=== PATIENT | male | born 1975 | race Caucasian/White ===

== ENCOUNTER 2021-12-20 16:43 | Inpatient (IN) | payer BC, SELFPAY ==
[2021-12-20] VITALS (9 sets, daily range): BP systolic 115–169; BP diastolic 92–111; PULSE 74–103; RESP 11–21; TEMP 36.3–36.8; O2SAT 96–99; BMI 31.1
--- NOTE | ~2021-12-20 | XR_ITS ---
EXAMINATION: XR chest 2V Exam Date/Time: 12/20/2021 19:10 CDT HISTORY: shoulder pain,CP Comparison: None available. RESULT: Lines, tubes, and devices: None. Lungs and pleura: Lordotic and under inflated views. Cardiomediastinal silhouette: Stable. Other: No acute osseous or upper abdominal finding. IMPRESSION: No acute cardiopulmonary process. Reviewed, dictated and finalized at location K.
--- NOTE | 2021-12-20 20:00 | ECG_ITS ---
Measurements Intervals [place] Rate: 94 P: 38 [place]: 143 QRS: -18 QRSD: 105 T: 32 QT: 359 QTc: 450 Interpretive Statements SINUS RHYTHM POSSIBLE LEFT ATRIAL ENLARGEMENT DELAYED PRECORDIAL R/S TRANSITION LEFT VENTRICULAR HYPERTROPHY AND ST-T CHANGE MINIMAL Q WAVES- HIGH LATERAL LEADS INFERIOR ST ELEVATION MYOCARDIAL INFARCT- ACUTE ABNORMAL ECG Electronically Signed On 12-21-2021 8:19:05 CDT by Perez Nj D.O.
--- NOTE | 2021-12-20 20:01 | ED.EXTPRO ---
HPI - Extremity Problem General Chief complaint: Chest Pain <Stewart Banegas APRN - Last Filed: 12/20/21 21:09> Stated complaint: L SHOULDER/ARM PAIN RADIATING TO CHEST <Stewart Banegas APRN - Last Filed: 12/20/21 21:09> Time Seen by Provider: 12/20/21 19:00 <Stewart Banegas APRN - Last Filed: 12/20/21 21:09> History of Present Illness HPI Narrative: 46-year-old male presents the emergency room for evaluation of left shoulder pain. Patient states he occasionally has posterior shoulder pain that radiates from the left elbow, and will also radiate across the chest. Pain has been present intermittently for 3-4 days. States the pain is worse with certain movements. Denies any known injury or trauma. Patient states he was seen in a chiropractor earlier this week for back and shoulder pain, states his symptoms have improved. Denies any shortness of breath or difficulty breathing. Denies any syncopal episodes. Denies dizziness or lightheadedness. No known cardiac history. <Stewart Banegas APRN - Last Filed: 12/20/21 21:09> Related Data Home medications: Home Medications Medication Instructions Recorded Confirmed No Home Medications 12/20/21 12/20/21 <Stewart Banegas APRN - Last Filed: 12/20/21 21:09> Allergies/Adverse reactions: Allergies Allergy/AdvReac Type Severity Reaction Status Date / Time No Known Allergies Allergy Verified 12/20/21 16:44 <Stewart Banegas APRN - Last Filed: 12/20/21 21:09> Review of Systems Review of Systems: CONSTITUTIONAL: Denies fever, chills, or sweats. EYES: Denies visual changes, redness, or discharge. ENT: Denies rhinorrhea, congestion, sore throat, or otalgia. CARDIOVASCULAR: Denies chest pain, palpitations, or edema. RESPIRATORY: Denies cough or dyspnea. GASTROINTESTINAL: Denies abdominal pain, nausea, vomiting, or diarrhea. GENITOURINARY: Denies dysuria or hematuria. SKIN: Denies rash or itching. MUSCULOSKELETAL: Reports left elbow pain, left shoulder pain NEUROLOGIC: Denies headache, numbness, dizziness, or weakness. PSYCHIATRIC: Denies anxiety or depression. <Stewart Banegas, COMPUTER GRAPHIC ARTIST - Last Filed: 12/20/21 21:09> Exam Narrative: GENERAL: Well-appearing, well-nourished, no physical limitations, and in no acute distress. HEAD: Normocephalic, atraumatic. EYES: Conjunctivae normal, PERRLA and EOMI. CHEST: Clear to auscultation. No respiratory distress. No wheezes rales or rhonchi. No tenderness. HEART: Regular rate and rhythm. No murmur heard. Normal peripheral pulses. ABDOMEN: Soft, nontender, nondistended, normal active bowel sounds. BACK: No CVA tenderness; No cervical/thoracic/lumbar tenderness, step-offs, bony abnormality; FROM. EXTREMITIES: Normal range of motion. Left shoulder: Full range of motion. No bony abnormality or tenderness. No soft tissue swelling. Neurovascular is intact distally SKIN: Warm, dry, no rash. No noted wounds NEURO: No focal deficits. Alert and oriented x3. MAEW. CN's II-XI intact bilaterally, normal gait PSYCH: Cooperative. Normal mood and affect. <Stewart Banegas, COMPUTER GRAPHIC ARTIST - Last Filed: 12/20/21 21:09> Course GAS METER INSTALLER HELPER/PA Physician Supervision For this patient encounter, I reviewed the GAS METER INSTALLER HELPER or PA documentation, treatment plan, and medical decision making; and I had [id number] time with this patient. GENERAL: Well-appearing, well-nourished, and in no acute distress. HEAD: Normocephalic, atraumatic. EYES: PERRL and EOMI. CHEST: Clear to auscultation. No respiratory distress. HEART: Regular rate and rhythm. Normal peripheral pulses. ABDOMEN: Soft, nontender, nondistended. EXTREMITIES: Normal range of motion. No edema. SKIN: Warm, dry, no rash. NEURO: Alert and oriented x3. PSYCH: Normal mood and affect. Abdomen pain left arm moving across left chest for the last 2 to 3 days. Proximately 10 times a day. Can last up to 30 minutes. EKG concerning for inferior STEMI with reciprocal depression in V1 V2. Contact
[2021-12-20 20:11] LABS: Basophils Percent Auto 0.4 % (0.2-1.2); Eosinophils Absolute Auto 0.1 K/mm3 (0-0.3); Eosinophils Percent Auto 0.8 % (0-4.4); Hematocrit 50.7 % (42.0-52.0); Immature Granulocyte Absolute 0.07 K/mm3 (0.00-0.031); Immature Granulocyte Percent A 0.8 % (0-0.5); Lymphocytes Absolute Auto 2.32 K/mm3 (0.9-3.2); Lymphocytes Percent Auto 25.3 % (18.3-44.2); Mean Corpuscular HGB Conc 35.5 g/dl (32-36); Mean Corpuscular Hemoglobin 30.8 pg (26-34); Mean Corpuscular Volume 86.7 fl (80-100); Mean Platelet Volume 9.6 fl (7.4-10.4); Monocytes Absolute Auto 0.5 K/mm3 (0.1-0.6); Monocytes Percent Auto 5.7 % (2.6-8.5); Neutrophils Absolute Auto 6.2 K/mm3 (1.3-6.7); Platelet Count Result 307 k/mm3 (150-375); Red Blood Count 5.85 M/mm3 (4.6-6.20); Red Cell Distribution Width 13.7 % (11.5-14.5); White Blood Count 9.2 K/mm3 (4.5-10.0)
[2021-12-20 20:21] LABS: Alanine Aminotransferase 24 U/L (6-50); Albumin Level 5.2 g/dL (3.5-5.1); Alkaline Phosphatase 72 U/L (38-126); Anion Gap 14 mmol/L (8-16); Aspartate Amino Transferase 19 U/L (17-59); Bilirubin,Total 0.5 mg/dL (0.2-1.3); Blood Urea Nitrogen 12 mg/dL (9-20); Calcium 10.3 mg/dL (8.4-10.2); Carbon Dioxide 27 mmol/L (22-30); Chloride 98 mmol/L (98-107); Estimated CRCL calculation 193 ml/min; Estimated Glomerular Filt Rate > 60; Glucose 254 mg/dL (65-110); Potassium 3.3 mmol/L (3.4-5.0); Sodium 139 mmol/L (137-145)
[2021-12-20 20:34] LABS: Troponin I 0.204 ng/mL (0.000-0.034)
[2021-12-20 21:00] LABS: Prothrombin Time 12.5 Seconds (11.1-14.7)
[2021-12-20 21:02] LABS: Lipase 75 U/L (23-300)
--- NOTE | 2021-12-20 22:50 | WPDMODSED ---
Moderate Sedation Note-Pt Data Patient Data Diagnosis: possible STEMI Present Complaint: left arm pain Procedure to be performed/Plan: coronary angiogram with possible stenting Allergies Allergy/AdvReac Type Severity Reaction Status Date / Time No Known Allergies Allergy Verified 12/20/21 16:44 Home Medications Medication Instructions Recorded Confirmed Type No Home Medications 12/20/21 12/20/21 History Sedation/Anesthesia: No previous sedation/anesthesia problems (including family history). Mod Sed Physical Exam Physical Exam Pre Procedural Exam: Normal: Appearance, Eyes, Ears, Nose, Neck, Throat, Airway, Lungs, Heart Size, Heart Rate, Heart Rhythm, Neuro Exam, Abdomen, Liver, Kidneys, Spleen, Breasts, Genitalia, Extremities and Skin Hours since solid foods: 8 Hours since liquid intake: 8 Mallampati Classification: class 1 Internal Medicine - PN: Obj Da Vital Signs Vital Signs: Vital Signs - 24 hr 12/20/21 16:46 12/20/21 19:47 12/20/21 20:12 Temperature 36.3 C L Pulse Rate 92 100 96 Respiratory Rate 20 20 14 Blood Pressure 153/97 H 115/96 H 155/111 H Pulse Oximetry 99 97 98 Oxygen Delivery Room Air Room Air 12/20/21 20:39 12/20/21 21:12 Temperature Pulse Rate 103 H 82 Respiratory Rate 15 20 Blood Pressure 169/108 H 149/97 H Pulse Oximetry 96 98 Oxygen Delivery Meds/Results Radiology Results: ITS Impressions Chest X-Ray 12/20/21 19:25 IMPRESSION: No acute cardiopulmonary process. Labs CBC & Chem 7: 12/20/21 20:06 12/20/21 20:06 Labs: Laboratory Results - last 24 hr 12/20/21 12/20/21 12/20/21 20:06 20:06 20:44 WBC 9.2 RBC 5.85 Hgb 18.0 Hct 50.7 MCV 86.7 MCH 30.8 MCHC 35.5 RDW 13.7 Plt Count 307 MPV 9.6 Immature Gran % (Auto) 0.8 H Neut % (Auto) 67.0 Lymph % (Auto) 25.3 Nobles % (Auto) 5.7 Eos % (Auto) 0.8 Baso % (Auto) 0.4 Lymph # (Auto) 2.32 Nobles # (Auto) 0.5 Eos # (Auto) 0.1 Baso # (Auto) 0.0 Abs Immat Gran (auto) 0.07 H Absolute Neuts (auto) 6.2 Absolute Nucleated RBC 0.0 Nucleated RBC % 0.0 PT 12.5 INR 1.0 APTT 35.0 Sodium 139 Potassium 3.3 L Chloride 98 Carbon Dioxide 27 Anion Gap 14 BUN 12 Creatinine 0.50 L Estim Creat Clear Calc 193 Estimated GFR > 60 Glucose 254 H Calcium 10.3 H Total Bilirubin 0.5 AST 19 ALT 24 Alkaline Phosphatase 72 Troponin I 0.204 H* Total Protein 9.0 H Albumin 5.2 H Lipase 12/20/21 20:44 WBC RBC Hgb Hct MCV MCH MCHC RDW Plt Count MPV Immature Gran % (Auto) Neut % (Auto) Lymph % (Auto) Nobles % (Auto) Eos % (Auto) Baso % (Auto) Lymph # (Auto) Nobles # (Auto) Eos # (Auto) Baso # (Auto) Abs Immat Gran (auto) Absolute Neuts (auto) Absolute Nucleated RBC Nucleated RBC % PT INR APTT Sodium Potassium Chloride Carbon Dioxide Anion Gap BUN Creatinine Estim Creat Clear Calc Estimated GFR Glucose Calcium Total Bilirubin AST ALT Alkaline Phosphatase Troponin I Total Protein Albumin Lipase 75 ASA Classification/Sedation ASA Classification/Sedation ASA Class: I Emergent: No Risks: Risks, benefits and alternatives explained and patient/family accepted plan for sedation. Patient re-evaluated immediately prior to sedation.
--- NOTE | 2021-12-20 22:52 | PM.IMHP ---
H&P: HPI History of Present Illness Date/Time: date of umqobqf32/30/22 22:52 Chief Complaint: left arm pain Narrative: this is 46-year-old patient with past medical history of tobacco use who presents to the hospital with intermittent left shoulder and left arm pain for the last 3-4 days without aggravating or relieving factors. Denies shortness of breath, palpitations, dizziness, syncope, orthopnea or paroxysmal nocturnal dyspnea. He does not know his family history. interestingly reviewing his EKG shows subtle ST elevation in inferior leads with subtle ST depression in leads 1 and aVL. His 1st troponin was 0.2, his glucose is 250, potassium 3.3 and creatinine 0.5. Hemoglobin 18 Review of Systems Constitutional: Constitutional: Denies chills, Denies fever(s) and Denies poor appetite Eyes: Eyes: Denies eye discharge, Denies loss of vision, Denies eye pain and Denies photophobia ENT: Denies dizziness, Denies epistaxis, Denies nasal congestion and Denies sore throat Cardiovascular: Cardiovascular: Denies chest pain, Denies syncope, Denies pedal edema, Denies leg edema, Denies palpitations, Denies dyspnea, Denies dyspnea on exertion and Denies orthopnea Comments: Left arm pain Respiratory: Respiratory: Denies cough, Denies dyspnea, Denies dyspnea on exertion and Denies wheezing Gastrointestinal: Gastrointestinal: Denies abdominal pain, Denies diarrhea, Denies nausea and Denies vomiting Genitourinary: Genitourinary: Denies hematuria, Denies genital lesions and Denies dysuria Musculoskeletal: Musculoskeletal: Denies arthralgias, Denies joint swelling and Denies numbness Comments: left arm pain Integumentary/Breasts: Skin/Breast: Denies pruritus and Denies rash Neurologic: Denies dizziness, Denies syncope, Denies loss of vision and Denies numbness Psychiatric: Psychiatric: Denies anxiety and Denies depression Endocrine: Endocrine: Denies cold intolerance, Denies heat intolerance and Denies palpitations Hematologic/Lymphatic: Hematologic/Lymphatic: Denies easy bleeding and Denies easy bruising Allergic/Immunologic: Allergic/Immunologic: Denies urticaria and Denies wheezing PMFSH Past Medical History Medical History (Updated 12/20/21 @ 23:00 by Isaias Nunez MD) No known health problems Tobacco abuse Surgical History Surgical History (Updated 12/20/21 @ 22:58 by Isaias Nunez MD) No significant past surgical history Social History Social History (Updated 12/20/21 @ 22:58 by Isaias Nunez MD) Smoking status: Current every day smoker Tobacco type: cigarettes Alcohol intake: never Substance use: never Comments the patient is and has 3 children Meds Home Medications and Allergies Home Medications Medication Instructions Recorded Confirmed Type No Home Medications 12/20/21 12/20/21 History Allergies Allergy/AdvReac Type Severity Reaction Status Date / Time No Known Allergies Allergy Verified 12/20/21 16:44 Vital Signs Vital Signs - 24 hr 12/20/21 16:46 12/20/21 19:47 12/20/21 20:12 Temperature 36.3 C L Pulse Rate 92 100 96 Respiratory Rate 20 20 14 Blood Pressure 153/97 H 115/96 H 155/111 H Pulse Oximetry 99 97 98 Oxygen Delivery Room Air Room Air 12/20/21 20:39 12/20/21 21:12 Temperature Pulse Rate 103 H 82 Respiratory Rate 15 20 Blood Pressure 169/108 H 149/97 H Pulse Oximetry 96 98 Oxygen Delivery Exam Const: General: cooperative, comfortable, no acute distress, alert and awake Nutritional Appearance: well nourished Orientation/consciousness: patient oriented x3 HENMT: Head: normal to inspection, normocephalic and atraumatic Ears: hearing grossly normal bilaterally General nose exam: Normal external nose present, Normal nares present and no nasal discharge noted Face and sinus: normal facial exam and no erythema Mouth: No drooling and No restricted motion Throat: uvula midline Eyes: General: appearance audie
--- NOTE | 2021-12-20 23:02 | WPDCARDPROC ---
Cardiac Cath Procedure Note Date of procedure:: 12/20/21 Performing physician:: Isaias Nunez MD Indication:: inferior ST elevation, left arm pain Brief clinical history:: this is 46-year-old patient with past medical history of tobacco use who presents to the hospital with intermittent left shoulder and left arm pain for the last 3-4 days without aggravating or relieving factors.? Denies shortness of breath, palpitations, dizziness, syncope, orthopnea or paroxysmal nocturnal dyspnea.? He does not know his family history. ?interestingly reviewing his EKG shows subtle ST elevation in inferior leads with subtle ST depression in leads 1 and aVL.? His 1st troponin was 0.2, his glucose is 250, potassium 3.3 and creatinine 0.5. ? Hemoglobin 18 Procedure Procedure performed:: 1-Moderate sedation that started at 9:25 p.m. and ended at 10:50 p.m. with total duration 85 minutes using 2mg of Versed and 75mcg fentanyl. The registered nurse was rick santillan. 2-Selective left and right coronary angiogram. 3-Left heart catheterization with measurement of LVEDP and measurement of gradient across aortic valve. 4-Right common femoral arterial angiogram. 5-Deployment of 6 Mongolian Angio-Seal. 6- IFR of the mid LAD. 7- IFR of mid ramus intermedius. 8- IFR of distal left circumflex artery. 9- intravascular ultrasound of the right coronary artery. 10- deployment of a drug-eluting stent marisel 3.5 x 30 for covering mid RCA with deployment under nominal pressure for 35 seconds and then post dilatation of the proximal and mid portion of the stent using 4 x 20 noncompliant balloon. Sedation/Medication given:: Moderate sedation. Access site:: Right common femoral artery. Estimated blood loss:: 10cc Procedure note:: After informed consent patient was brought in to labor relations supervisor with the was draped and prepped in usual manner. Moderate sedation was given and the right groin was infiltrated using 1% lidocaine. Six Mongolian sheath was obtained using micropuncture needle and the modified Seldinger technique. Selective left coronary angiogram was done using JL4 catheter with the tip of the catheter placed in the left main coronary artery. Selective right coronary angiogram was done using JR4 catheter with the tip of the catheter placed to the right coronary artery. subsequently we took CLS guide catheter and advanced to aortic root. Pressure wired was zeroed outside the body and then advanced to the aortic root with normalization pressures done. Pressure wire was advanced to distal LAD a measurement of IFR of the LAD was done. Pullback across the proximal and mid LAD was done. Then the pressure was taken back again into the guide and normalization pressures done. Pressure wire was advanced to distal ramus intermedius and measurement of IFR done. Pull across the lesion was done. the wire was pulled to the guide with normalization pressures done and then the wire was advanced distal left circumflex artery were measurement of IFR done and then pullback across the lesion done. Since the IFR was not significant in the left coronary system we proceeded ahead and decided to intervene on the right coronary artery. At this time 6 Mongolian guide catheter the JR4 was taken and engaged the right coronary artery. Coronary luge wire advanced to distal RCA. Subsequently balloon angioplasty done in the mid RCA using 3 x 15 balloon with initial inflation under normal pressure for 20 seconds and then we inflated the balloon to 10 atmospheres for 25 seconds with 3 inflations done. Intravascular ultrasound of the right coronary artery done. After that deployment of drug-eluting stent marisel 3.5 x 34 comparing mid RCA under number pressure for 35 seconds. post dilatation of the proximal and midportion of the stent done using 4 x 20 noncompliant balloon under normal pressure for 25 seconds each. After that 5 Mongolian pigtail catheter was advanced across the aortic valve into the left ventricl
--- NOTE | 2021-12-20 23:10 | ADMGEN ---
This patient, David Magdaleno, was admitted to Intensive Care Unit-1. Patient/family oriented to hospital policies and general routines including ID bracelet, bed and alarms, visiting hours, pain management, procedures, bathroom and other care routines, personal items, smoking policy, room service/diet, and visiting hours. Information on how to activate the Rapid Response Team has been discussed. Patient/Family are encouraged to report perceived risks to care and to ask questions if they do not understand what they are told or what they should do.
--- NOTE | 2021-12-20 23:15 | ECG_ITS ---
Measurements Intervals [place] Rate: 73 P: 49 OR: 124 QRS: -9 QRSD: 108 T: -25 QT: 409 QTc: 453 Interpretive Statements SINUS RHYTHM INFERIOR INFARCT, AGE INDETERMINATE ABNORMAL ECG Electronically Signed On 12-21-2021 17:21:06 CDT by Perez Nj D.O.
[2021-12-20] MEDS: SODIUM CHLORIDE 0.9% IV 1,000 ML 125 ML IV CONT (23:54)
[2021-12-21] VITALS (41 sets, daily range): BP systolic 101–154; BP diastolic 67–96; PULSE 66–97; RESP 9–22; TEMP 35.9–36.7; O2SAT 95–100
[2021-12-21 04:11] LABS: Basophils Percent Auto 0.3 % (0.2-1.2); Eosinophils Absolute Auto 0.1 K/mm3 (0-0.3); Eosinophils Percent Auto 0.4 % (0-4.4); Hematocrit 45.7 % (42.0-52.0); Immature Granulocyte Absolute 0.07 K/mm3 (0.00-0.031); Immature Granulocyte Percent A 0.6 % (0-0.5); Lymphocytes Absolute Auto 2.28 K/mm3 (0.9-3.2); Lymphocytes Percent Auto 20.3 % (18.3-44.2); Mean Corpuscular Hemoglobin 30.7 pg (26-34); Mean Corpuscular Volume 87.7 fl (80-100); Mean Platelet Volume 9.3 fl (7.4-10.4); Monocytes Absolute Auto 0.7 K/mm3 (0.1-0.6); Monocytes Percent Auto 6.2 % (2.6-8.5); Neutrophils Absolute Auto 8.1 K/mm3 (1.3-6.7); Neutrophils Percent Auto 72.2 % (45.5-73.1); Platelet Count Result 230 k/mm3 (150-375); Red Blood Count 5.21 M/mm3 (4.6-6.20); Red Cell Distribution Width 13.5 % (11.5-14.5); White Blood Count 11.2 K/mm3 (4.5-10.0)
[2021-12-21 04:25] LABS: Hemoglobin A1C 9.7 % (<5.7)
[2021-12-21 04:30] LABS: Anion Gap 9 mmol/L (8-16); Blood Urea Nitrogen 11 mg/dL (9-20); Calcium 8.9 mg/dL (8.4-10.2); Carbon Dioxide 30 mmol/L (22-30); Chloride 100 mmol/L (98-107); Cholesterol 297 mg/dL (0-200); Estimated CRCL calculation 194 ml/min; Estimated Glomerular Filt Rate > 60; Glucose 217 mg/dL (65-110); HDL Direct 28 mg/dL; Sodium 139 mmol/L (137-145)
[2021-12-21 04:33] LABS: LDL Cholesterol Direct 66 mg/dL
[2021-12-21 05:19] LABS: Triglycerides 1159 mg/dL (<150)
--- NOTE | 2021-12-21 07:00 | ECG_ITS ---
Measurements Intervals [place] Rate: 75 P: 42 [place]: 124 QRS: -17 QRSD: 105 T: -9 QT: 395 QTc: 443 Interpretive Statements SINUS RHYTHM VOLTAGE CRITERIA FOR LVH INFERIOR INFARCT, AGE INDETERMINATE ABNORMAL ECG Electronically Signed On 12-21-2021 8:19:53 CDT by Perez Nj D.O.
[2021-12-21 08:11] LABS: Glucose Point of Care 300 mg/dl (65-105)
[2021-12-21] MEDS: TICAGRELOR 90 MG TABLET PO ×2 (08:30→20:03)
--- NOTE | 2021-12-21 08:30 | PM.IMCN ---
Assessment and Plan Assessment and plan (1) ST elevation (STEMI) myocardial infarction: Code(s): I21.3 - ST elevation (STEMI) myocardial infarction of unspecified site Status: Acute (2) Hypokalemia: Code(s): E87.6 - Hypokalemia Status: Acute (3) CAD (coronary artery disease): Code(s): I25.10 - Atherosclerotic heart disease of [place] coronary artery without angina pectoris Status: Acute (4) Diabetes mellitus: Code(s): E11.9 - Type 2 diabetes mellitus without complications Status: Acute (5) Hypertriglyceridemia: Code(s): E78.1 - Pure hyperglyceridemia Status: Acute (6) Tobacco abuse: Code(s): Z72.0 - Tobacco use Status: Acute Plan Patient presents with left shoulder and chest pain found to have ST-elevation FL. Patient underwent balloon angioplasty and drug-eluting stent placement successfully. He has tolerated the procedure well. It should be noted that he had diffuse irregular disease in the LAD in the was discussion about possible CABG but the IFR was borderline at worst. Repeat EKG showing resolution of the ST elevation. Plan for aggressive medical management. He has been started on aspirin and Brilinta. Coreg and lisinopril was added today. patient's total cholesterol was elevated and Lipitor has been started. His triglycerides are elevated probably related to his uncontrolled diabetes. Lipase is normal and no abdominal pain with benign exam. TG level should improve with improvement was glucose. Metformin has been added which agree with. He is also was started on insulin drip for diabetes and triglyceride control. staff development educator and dietitian consult. Suspect patient was dehydrated on presentation with elevated calcium, protein and albumin. Calcium has normalized with hydration. Patient was educated extensively about the benefits of smoking cessation. He was also educated about the need for good dental hygiene and discuss the association with coronary disease. Also spoke at length about the benefits of leading a healthy lifestyle. All questions were answered. Thank you so much for allowing me to be part of this patient's care. Will continue to follow along with you. Code status: Full DVT prophylaxis: Lovenox Diet: Low fat. Add diabetic HPI Data of Consult Consult date: 12/21/21 Requesting Physician: Dr Nunez Primary Care Provider: PHYSICIAN NOT ON STAFF Consult Narrative Narrative: David Magdaleno is a 46 year old healthy male here for left shoulder pain and found to have STEMI.Patient presents to the emergency room with complaints left shoulder pain that radiated to left arm associated chest pain. Symptoms have been intermittent for the past 3-4 days prior to admissions. Troponin was elevated at 0.2. EKG showed ST-elevation the inferior leads with reciprocal depression in V1 and V2. CXR was clear STEMI was called and patient went left heart catheterization which showed large left coronary artery in the divides into a large LAD and a large circumflex and ramus. The LAD a proximal and midportion diffuse 50-60% lesion. The right coronary artery was large and dominant with a mid portion 90% ruptured plaque with TOYA flow 3. Patient underwent successful balloon angioplasty and stenting of the mid RCA with drug-eluting stent. routine lab work showed low potassium, elevated glucose to 254, calcium 10.3, total protein of 9 and albumin of 5.2. Lipase was normal. Triglyceride level was 1159 with cholesterol 297 and LDL 66 and HDL 28. Patient has no history of diabetes. He smokes half a pack a day for the past 10-15 years. He has noted polyuria over the past month or so. He has polydypsia symptoms but states this is more chronic for him. No numbness, tingling or weakness in the extremities. No blurry vision or vision changes. He has not seen a physician for past 10 years. Review of Systems Review of Systems: All systems r
[2021-12-21] MEDS: metFORMIN HCL 500 MG TABLET PO ×2 (08:31→18:08)
[2021-12-21] MEDS: ASPIRIN 81 MG ENTERIC TABLET PO (08:31)
[2021-12-21] MEDS: POTASSIUM CHLORIDE 20 MEQ PACKET (FOR LIQUID) 40 MEQ PO ×2 (08:31→21:23)
[2021-12-21] MEDS: KCL 20 MEQ/D5/0.45% SOD CHL 1,000 ML 150 ML IV CONT ×2 (08:32→19:22)
[2021-12-21] MEDS: POTASSIUM CHLORIDE INJ 40 MEQ in SODIUM CHLORIDE 0.9% IV 500 ML 130 MEQ IVPB ×2 (08:32→21:23)
--- NOTE | 2021-12-21 09:23 | WPDCNINT ---
Assessment and Plan Assessment and plan (1) ST elevation (STEMI) myocardial infarction: Code(s): I21.3 - ST elevation (STEMI) myocardial infarction of unspecified site Status: Acute Assessment and Plan: Status post cardiac catheterization and PCI. Stent placement to RCA Currently chest pain-free and EKG done this morning shows improve Continue ICU telemetry monitoring Check echocardiogram Patient is on aspirin and Brilinta Start statin beta-sarah and SAM-inhibitor (2) CAD (coronary artery disease): Code(s): I25.10 - Atherosclerotic heart disease of [place] coronary artery without angina pectoris Status: Acute Assessment and Plan: See above (3) Hypertriglyceridemia: Code(s): E78.1 - Pure hyperglyceridemia Status: Acute Assessment and Plan: Patient's triglyceride level was 1159 be secondary to uncontrolled diabetes Patient will be started on IV insulin infusion once he receives his potassium replacement. Patient was also started on IV fluids with dextrose Patient will also be started on statin I will hold starting fenofibrate until triglyceride levels are improved since patient is also being started on statin today (4) Tobacco abuse: Code(s): Z72.0 - Tobacco use Status: Acute Assessment and Plan: Patient was counseled and encouraged to quit smoking He was started on nicotine patch by Cardiology (5) Hypokalemia: Code(s): E87.6 - Hypokalemia Status: Acute Assessment and Plan: Potassium replacement ordered Serial BMPs ordered (6) Diabetes mellitus: Code(s): E11.9 - Type 2 diabetes mellitus without complications Status: Acute Assessment and Plan: Patient on insulin infusion for hypertriglyceridemia this Consult conservation educator Start metformin Additional Plan DVT prophylaxis -Lovenox Nutrition -low-fat Code Status - Full Code Human Resources Temp Consult Note Consult date: 12/21/21 Reason for consult: STEMI, uncontrolled diabetes, hypertriglyceridemia HPI: David Magdaleno is a 46 year old male with no known significant past medical history presented yesterday with chief complaint of pain which started in his left shoulder and transferred to his chest. Patient states the pain started around Wednesday and had been intermittent since then. Pain was 2/10, dull in quality and started initially in the shoulder that went to his left arm and later into his chest. Pain was intermittent with no aggravating or relieving factor. Pain has now presents resolved completely. He denied any nausea vomiting shortness of breath dizziness lightheadedness palpitations associated with it. Review of system was positive for polyuria and polydipsia.All other systems were reviewed and were negative In the ED patient was found to be having elevated and ST segment elevation in inferior leads. Patient was diagnosed with ST segment elevation CA and was taken to cardiac catheterization lab where he underwent PCI and stenting of his right RCA. Post procedure patient was admitted to ICU for further evaluation management. At this time patient denies any complaints and states that he feels much better and does not have any chest pain or shortness of breath at this time. Review of Systems Review of Systems: All systems reviewed & are unremarkable except as noted in HPI and below (HPI) [facility] Past Medical History Medical History No known health problems Tobacco abuse Surgical History Surgical History No significant past surgical history Family History Family History Other Unknown family medical history Social History Social History (Updated 12/21/21 @ 08:49 by Tobin Ramirez MD) Social History: He lives at home with his and 3 children. He smokes half a pack a day for past 10-15
[2021-12-21 11:05] LABS: Glucose Point of Care 211 mg/dl (65-105)
[2021-12-21] MEDS: INSULIN HUMAN REGULAR (*BKC) 100 UNITS in SODIUM CHLORIDE 0.9% IV 99 ML IV CONT (11:05)
[2021-12-21] MEDS: lisinopriL 5 MG TABLET PO (11:06)
[2021-12-21] MEDS: ATORVASTATIN 40 MG TABLET PO (11:06)
[2021-12-21] MEDS: carvediloL 3.125 MG TABLET PO ×2 (11:06→20:03)
[2021-12-21] MEDS: ENOXAPARIN 40 MG/0.4 ML SYRINGE SUB-Q (11:07)
[2021-12-21 12:10] LABS: Glucose Point of Care 203 mg/dl (65-105)
[2021-12-21 12:16] LABS: Anion Gap 9 mmol/L (8-16); Blood Urea Nitrogen 11 mg/dL (9-20); Calcium 8.8 mg/dL (8.4-10.2); Carbon Dioxide 27 mmol/L (22-30); Chloride 101 mmol/L (98-107); Estimated CRCL calculation 194 ml/min; Estimated Glomerular Filt Rate > 60; Glucose 193 mg/dL (65-110); Potassium 3.7 mmol/L (3.4-5.0); Sodium 137 mmol/L (137-145)
[2021-12-21 13:21] LABS: Glucose Point of Care 258 mg/dl (65-105)
[2021-12-21 14:32] LABS: Glucose Point of Care 228 mg/dl (65-105)
[2021-12-21 15:17] LABS: Glucose Point of Care 180 mg/dl (65-105)
--- NOTE | 2021-12-21 15:47 | PM.PNCARD ---
Progress Note: A&P Assessment and Plan (1) ST elevation (STEMI) myocardial infarction: Code(s): I21.3 - ST elevation (STEMI) myocardial infarction of unspecified site Status: Acute Assessment and Plan: Acute inferior myocardial infarction treated with a drug-eluting stent by Dr. Nunez 12/20/2021 late p.m. Echo tomorrow to evaluate LV function Increase activity Discharge tomorrow night or more likely Wednesday, to get the patient's diabetes under better control before discharge. Early office follow-up Possible return to work January 05 or January 11, depending on the patient's course. Pt does desk work. (2) CAD (coronary artery disease): Code(s): I25.10 - Atherosclerotic heart disease of [place] coronary artery without angina pectoris Status: Acute Assessment and Plan: Multivessel CAD, IFR performed during cardiac catheterization, good flow through the left-sided vessels. No need for CABG at this time Aggressive secondary prevention with lifestyle changes and medications Continue aspirin, Brilinta, atorvastatin, carvedilol and lisinopril. (3) Hypercholesterolemia: Code(s): E78.00 - Pure hypercholesterolemia, unspecified Status: Acute Assessment and Plan: Reviewed severe hypercholesterolemia with the patient Discussed heart healthy diet, medications, etc. (4) Hypertriglyceridemia: Code(s): E78.1 - Pure hyperglyceridemia Status: Acute Assessment and Plan: Severe hypertriglyceridemia, perhaps due in part to uncontrolled diabetes. Reviewed treatment. Recheck in a.m.; consider fenofibrate (5) Hypokalemia: Code(s): E87.6 - Hypokalemia Status: Acute Assessment and Plan: Admitted with severe hypokalemia, not on any medications to cause this. Repleted. Check BMP and magnesium level in a.m. (6) Tobacco abuse: Code(s): Z72.0 - Tobacco use Status: Acute Assessment and Plan: Smoking cessation strongly encouraged. (7) Diabetes mellitus: Code(s): E11.9 - Type 2 diabetes mellitus without complications Status: Acute Assessment and Plan: New onset diabetes Hospitalist consulted, On insulin drip Started on metformin will make appointment with a primary care doctor for follow-up as the patient does not have a PCP. Subjective Date/time seen: Follow-up for acute inferior myocardial infarction. Patient was admitted 12/20/2021 after a few days of waxing waning left shoulder pain and some chest discomfort. Cardiac catheterization by Dr. Nunez showed the culprit lesion in the mid right coronary artery but also lesions of the LAD, ramus and distal CX. IFR showed that the other lesions were not requiring revascularization with CABG so a drug-eluting stent was placed in the right coronary artery. Other problems: Severe hyper cholesterolemia, severe hypertriglyceridemia, new onset of diabetes, history of smoking, no regular medical care. Date of service 12/21/21 15:47: Feeling well since admission, no more shoulder or chest discomfort, no shortness of breath. and son at bedside. Many questions answered. Review of Systems Constitutional: Constitutional: Denies fever(s) Cardiovascular: Cardiovascular: Denies chest pain, Denies pedal edema, Denies lightheadedness and Denies dyspnea Respiratory: Respiratory: Denies chest congestion and Denies dyspnea Gastrointestinal: Gastrointestinal: Denies abdominal pain and Denies hematochezia Musculoskeletal: Musculoskeletal: Reports no additional musculoskeletal complaints Integumentary/Breasts: Skin/Breast: Reports system reviewed and no additional complaints, except as docu Neurologic: Reports system reviewed and no additional complaints, except
[2021-12-21 16:23] LABS: Glucose Point of Care 115 mg/dl (65-105)
[2021-12-21 17:13] LABS: Glucose Point of Care 126 mg/dl (65-105)
[2021-12-21 18:06] LABS: Glucose Point of Care 128 mg/dl (65-105)
[2021-12-21 19:03] LABS: Glucose Point of Care 178 mg/dl (65-105)
[2021-12-21 20:13] LABS: Anion Gap 9 mmol/L (8-16); Blood Urea Nitrogen 13 mg/dL (9-20); Calcium 8.3 mg/dL (8.4-10.2); Carbon Dioxide 26 mmol/L (22-30); Chloride 102 mmol/L (98-107); Estimated CRCL calculation 194 ml/min; Estimated Glomerular Filt Rate > 60; Glucose 163 mg/dL (65-110); Potassium 3.1 mmol/L (3.4-5.0); Sodium 137 mmol/L (137-145)
[2021-12-21 20:34] LABS: Glucose Point of Care 136 mg/dl (65-105)
--- NOTE | 2021-12-21 20:39 | PC.NURSE ---
Stop Insulin drip for 2 hours, Give 40 meq Potassium PO and give 40Meq Potassium IV x1 now. Restart Insulin drip 2 hours after the Krider has been infusing.
[2021-12-21] MEDS: traMADol HCL (*CRX) 50 MG TABLET PO (23:31)
[2021-12-21 23:35] LABS: Glucose Point of Care 155 mg/dl (65-105)
[2021-12-22] VITALS (14 sets, daily range): BP systolic 104–133; BP diastolic 72–82; PULSE 69–90; RESP 12–25; TEMP 36.2–37.6; O2SAT 95–99; BMI 31.3
--- NOTE | 2021-12-22 | ECHO_ITS ---
Patient Info Name: David Magdaleno Age: 46 years : 1975 Gender: Male Ht: 72 in Wt: 226 lbs BSA: 2.31 m2 HR: 69 bpm BP: 104 / 72 mmHg Heart Rhythm: Sinus Rhythm Technical Quality: Fair Exam Date: 12/22/2021 7:41 AM Exam Location: [facility] Patient Status: Inpatient Admit Date: 12/20/2021 Staff Ordering Physician: Isaias Nunez MD Meat Selector: Haylee Romo RDCS Attending Provider: Tobin Ramirez MD Referring Physician: Enrique MENJIVAR; Exam Type: CA echo doppler color flow Study Info Indications - STEMI Complete two-dimensional, color flow and Doppler transthoracic echocardiogram is performed. Summary 1. Complete two-dimensional, color flow and Doppler transthoracic echocardiogram is performed. 2. Left ventricular chamber dimension is normal. 3. Left ventricular systolic function is normal, estimated at 55-60%. 4. Left ventricular septal wall motion is abnormal with septal motion related to bundle branch block. 5. There is mildly increased left ventricular wall thickness. 6. Right atrial chamber dimension is mildly enlarged. 7. There is trace tricuspid valve regurgitation. 8. No pulmonary hypertension, estimated pulmonary arterial systolic pressure is 20 mmHg. Left Ventricle Left ventricular chamber dimension is normal. Left ventricular systolic function is normal, estimated at 55-60%. There is mildly increased left ventricular wall thickness. Left ventricular septal wall motion is abnormal with septal motion related to bundle branch block. The left ventricular diastolic function is normal. Right Ventricle Right ventricular chamber dimension is normal. Right ventricular systolic function is normal. Left Atria Left atrial chamber dimension is normal. Right Atria Right atrial chamber dimension is mildly enlarged. Aortic Valve The aortic valve is not well visualized. There is no aortic valve stenosis. There is no aortic valve regurgitation. Pulmonic Valve The pulmonic valve is not well visualized. Mitral Valve The mitral valve has normal leaflets. There is no mitral valve regurgitation. Tricuspid Valve The tricuspid valve leaflets are normal. There is trace tricuspid valve regurgitation. No pulmonary hypertension, estimated pulmonary arterial systolic pressure is 20 mmHg. Pericardium/Pleural The pericardium appears epicardial fat pad. Inferior Vena Cava Dilated inferior vena cava with <50% collapse upon inspiration consistent with elevated right atrial pressure, 10 mmHg. Aorta The aortic root size at the sinus of Valsalva is normal. There is mild aortic atherosclerosis. Left Ventricular Outflow Tract Name Value Normal LVOT 2D LVOT Diameter 2.1 cm LVOT Doppler LVOT Peak Gradient 3 mmHg LVOT Mean Gradient 1 mmHg LVOT VTI 14 cm LVOT VTI/AV VTI Ratio 0.7 LVOT Stroke Volume 46 ml LVOT CO 3.2 l/min LVOT CI 1.4 l/min/m2
[2021-12-22 00:57] LABS: Glucose Point of Care 173 mg/dl (65-105)
[2021-12-22 01:14] LABS: Anion Gap 10 mmol/L (8-16); Blood Urea Nitrogen 13 mg/dL (9-20); Calcium 8.3 mg/dL (8.4-10.2); Carbon Dioxide 27 mmol/L (22-30); Chloride 100 mmol/L (98-107); Estimated CRCL calculation 194 ml/min; Estimated Glomerular Filt Rate > 60; Glucose 161 mg/dL (65-110); Potassium 3.8 mmol/L (3.4-5.0); Sodium 137 mmol/L (137-145)
[2021-12-22 02:12] LABS: Glucose Point of Care 201 mg/dl (65-105)
[2021-12-22 03:37] LABS: Glucose Point of Care 170 mg/dl (65-105)
[2021-12-22] MEDS: KCL 20 MEQ/D5/0.45% SOD CHL 1,000 ML 150 ML IV CONT (03:37)
[2021-12-22 04:36] LABS: Hematocrit 41.2 % (42.0-52.0); Mean Corpuscular Hemoglobin 30.6 pg (26-34); Mean Corpuscular Volume 90.2 fl (80-100); Mean Platelet Volume 9.4 fl (7.4-10.4); Platelet Count Result 201 k/mm3 (150-375); Red Blood Count 4.57 M/mm3 (4.6-6.20); Red Cell Distribution Width 14.1 % (11.5-14.5); White Blood Count 8.6 K/mm3 (4.5-10.0)
[2021-12-22 04:53] LABS: Glucose Point of Care 153 mg/dl (65-105)
[2021-12-22 05:05] LABS: Alanine Aminotransferase 17 U/L (6-50); Albumin Level 3.9 g/dL (3.5-5.1); Alkaline Phosphatase 49 U/L (38-126); Anion Gap 9 mmol/L (8-16); Aspartate Amino Transferase 18 U/L (17-59); Bilirubin,Total 0.5 mg/dL (0.2-1.3); Blood Urea Nitrogen 13 mg/dL (9-20); Calcium 8.2 mg/dL (8.4-10.2); Carbon Dioxide 27 mmol/L (22-30); Chloride 101 mmol/L (98-107); Estimated CRCL calculation 195 ml/min; Estimated Glomerular Filt Rate > 60; Glucose 138 mg/dL (65-110); Lipase 54 U/L (23-300); Magnesium 1.8 mg/dL (1.6-2.3); Phosphorus 2.5 mg/dL (2.5-4.5); Potassium 3.4 mmol/L (3.4-5.0); Sodium 137 mmol/L (137-145); Triglycerides 799 mg/dL (<150)
[2021-12-22 06:33] LABS: Glucose Point of Care 139 mg/dl (65-105)
[2021-12-22 07:50] LABS: Glucose Point of Care 144 mg/dl (65-105)
--- NOTE | 2021-12-22 08:23 | WPDINTPN ---
Progress Note: A&P Assessment and Plan (1) ST elevation (STEMI) myocardial infarction: Code(s): I21.3 - ST elevation (STEMI) myocardial infarction of unspecified site Status: Acute Assessment and Plan: Status post cardiac catheterization and PCI. Stent placement to RCA Currently chest pain-free and EKG postprocedure showed improve Echocardiogram is being done at this time Patient is on aspirin and Brilinta Continue statin beta-sarah and SAM-inhibitor (2) CAD (coronary artery disease): Code(s): I25.10 - Atherosclerotic heart disease of [place] coronary artery without angina pectoris Status: Acute Assessment and Plan: See above (3) Hypertriglyceridemia: Code(s): E78.1 - Pure hyperglyceridemia Status: Acute Assessment and Plan: 12/21 Patient's triglyceride level was 1159 likely secondary to uncontrolled diabetes Patient was started on IV insulin infusion. Patient was also started on IV fluids with dextrose Patient w was also started on statin Triglyceride level today 799 Since patient is asymptomatic and lipase level is normal I will transition him to subcutaneous insulin, patient will be switched to Lantus with meal insulin and SSI. Discontinue dextrose infusion. Start omega-3. Vascepa is not available hence was started on Lovaza Recheck level in the morning (4) Tobacco abuse: Code(s): Z72.0 - Tobacco use Status: Acute Assessment and Plan: Patient was counseled and encouraged to quit smoking He was started on nicotine patch by Cardiology (5) Hypokalemia: Code(s): E87.6 - Hypokalemia Status: Acute Assessment and Plan: Potassium replacement ordered (6) Diabetes mellitus: Code(s): E11.9 - Type 2 diabetes mellitus without complications Status: Acute Assessment and Plan: Patient transition to Lantus, with meal insulin and SSI Consult family life educator Continue metformin Additional Plan DVT prophylaxis -Lovenox Nutrition -low-fat Code Status - Full Code Transfer out of ICU today Subjective Date/time seen: 12/22/21 08:23 Patient states he feels better denies any complaint this morning. He is afebrile. Patient denies fever, chest pain, shortness of breath, cough, nausea vomiting, abdominal pain,, diarrhea, headache or constipation. Tolerating oral diet. He is on insulin infusion and IV fluids. Review of Systems Review of Systems: All systems reviewed & are unremarkable except as noted in HPI and below (Subjective) Exam Narrative: General: Pt is alert awake and in NAD Lungs/Chest: Trachea central Clear BS B/L, No crackles or wheezing. Cardiac: RRR. Normal S1 S2. No murmurs Circulation: Pedal pulses are intact and symmetrical. Abdomen: Normal bowel sounds.. Soft. NT. ND. Extremities: No clubbing, cyanosis or edema. Warm right groin cath site with no swelling hematoma or bruising : Benitez in place Neurologic: Follows commands. Moves all 4 extremities PERRL Skin: No Rash Objective Data Vital Signs Vital Signs: Vital Signs - 24 hr 12/21/21 08:42 12/21/21 10:00 12/21/21 09:00 Temperature Pulse Rate 84 97 Respiratory Rate 14 Blood Pressure Pulse Oximetry 97 Oxygen Delivery Room Air 12/21/21 09:01 12/21/21 10:00 12/21/21 10:01 Temperature Pulse Rate 96 81 95 Respiratory Rate 15 15 22 H Blood Pressure 140/89 132/82 Pulse Oximetry 98 98 100 Oxygen Delivery 12/21/21 11:06 12/21/21 12:00 12/21/21 11:00 Temperature Pulse Rate 91 91 Respiratory Rate 11 L Blood Pressure Pulse Oximetry 98 Oxygen Delivery Room Air 12/21/21 11:01 12/21/21 12:00 12/21/21 12:01 Temperature 35.9 C L Pulse Rate 93 82 84 Respiratory Rate 12 13 12 Blood Pressure 134/91 H 128/76 Pulse Oximetry 98 99 97 Oxygen Delivery 12/21/21 12:00 12/21/21 14:00 12/21/21 13:01 Temperature Pulse Rate 86 81 83 Respiratory Rate 14 Blood Pressure 121/71 P
[2021-12-22] MEDS: POTASSIUM CHLORIDE 20 MEQ PACKET (FOR LIQUID) 40 MEQ PO ×2 (08:29→11:16)
[2021-12-22] MEDS: ASPIRIN 81 MG ENTERIC TABLET PO (08:29)
[2021-12-22] MEDS: metFORMIN HCL 500 MG TABLET PO ×2 (08:29→16:47)
[2021-12-22] MEDS: lisinopriL 5 MG TABLET PO (08:29)
[2021-12-22] MEDS: ATORVASTATIN 40 MG TABLET PO (08:29)
[2021-12-22] MEDS: carvediloL 3.125 MG TABLET PO ×2 (08:29→20:43)
[2021-12-22] MEDS: TICAGRELOR 90 MG TABLET PO ×2 (08:29→20:42)
[2021-12-22] MEDS: INSULIN ASPART (*BKC) 100 UNITS/ML SUB-Q (08:30)
[2021-12-22] MEDS: ENOXAPARIN 40 MG/0.4 ML SYRINGE SUB-Q (08:30)
[2021-12-22] MEDS: INSULIN GLARGINE (*BKC) 100 UNITS/ML 20 UNITS SUB-Q (08:30)
--- NOTE | 2021-12-22 08:39 | PM.IMPN ---
Progress Note: A&P Assessment and Plan (1) ST elevation (STEMI) myocardial infarction: Code(s): I21.3 - ST elevation (STEMI) myocardial infarction of unspecified site Status: Acute Assessment and Plan: Patient presents with left shoulder and chest pain and found to have ST-elevation TX. Patient underwent balloon angioplasty and drug-eluting stent placement successfully. He tolerated the procedure well. It should be noted that he had diffuse irregular disease in the LAD and there was discussion about possible CABG but the IFR was borderline at worst. Repeat EKG showing resolution of the ST elevation. He has been started on aspirin, Brilinta, Coreg, lisinopril and Lipitor. Continue aggressive medical management. (2) Hypokalemia: Code(s): E87.6 - Hypokalemia Status: Acute Assessment and Plan: Potassium was low on admission and has been replaced. Potassium 3.4 today and replacement again ordered. He did have elevated BP on admission so consider primary hyperaldosteronism. Will check cortisol as well as Hiram/renin. (3) CAD (coronary artery disease): Code(s): I25.10 - Atherosclerotic heart disease of [place] coronary artery without angina pectoris Status: Acute Assessment and Plan: As above. Continue aggressive medical management and control of his risk factors. Smoking cessation has been emphasized. He was also educated about the need for good dental hygiene and about the benefits of leading a healthy lifestyle. (4) Diabetes mellitus: Code(s): E11.9 - Type 2 diabetes mellitus without complications Status: Acute Assessment and Plan: Patient has been having polyuria recently and noted to have hyperglycemia on admission. A1c 9.7. He was treated with insulin drip for hie hypertrigylcerides. Elevated TG felt related to his uncontrolled DM. Metformin was added. perioperative educator and dietitian consulted. Suspect patient was dehydrated on presentation with elevated calcium, protein and albumin. Calcium has normalized with hydration. Would add empagliflozin if he can afford this. Would try to hold off on insulin if possible to prevent weight gain. Will stop meal time insulin. Continue Lantus for now but would like to stop this as well if possible. (5) Hypertriglyceridemia: Code(s): E78.1 - Pure hyperglyceridemia Status: Acute Assessment and Plan: His triglycerides are elevated probably related to his uncontrolled diabetes. Lipase is normal and no abdominal pain with benign exam. TG level improving with improvement was glucose. Lipitor added. Fish oil added. Follow (6) Tobacco abuse: Code(s): Z72.0 - Tobacco use Status: Acute Assessment and Plan: Patient was educated extensively about the benefits of smoking cessation. He voices understanding. Plan Code status: Full DVT prophylaxis: Lovenox Diet: Low fat; diabetic Subjective Date/time seen: 12/22/21 08:39 Interval history: 46yo healthy male presents with chest pain and found to have STEMI. Patient feels well today. Slept well overnight. No recurrent chest pain or shoulder pain. Exam Narrative: AF 98.3 104/72 84 12 96% ra Gen - NARD Chest - lungs are clear anteriorly. Nml RR CV - RRR. S1-S2. Tele showing no significant dysrhythmias Abd - soft, NT/ND, +BS Ext - no pedal edema. Right femoral area without mass or tenderness Psych - normal mood with depressed affect and poor eye contact. Skin - warm and dry. Objective Data Vital Signs Vital Signs: Vital Signs - 24 hr 12/21/21 08:42 12/21/21 10:00 12/21/21 09:00 Temperature Pulse Rate 84 97 Respiratory Rate 14 Blood Pressure Pulse Oximetry 97 Oxygen Delivery Room Air 12/21/21 09:01 12/21/21 10:00 12/21/21 10:01 Temperature Pulse Rate 96 81 95 Respiratory Rate 15 15 22 H Blood Pressure 140/89 132/82 Pulse Oximetry 98 98 100 Oxygen Delivery
[2021-12-22] MEDS: OMEGA 3 POLYUNSAT FATTY ACIDS 1 GM CAP PO (08:48)
--- NOTE | 2021-12-22 10:58 | PCDIET ---
Dietitian consult for DKA admission. See Nutritional Teaching Intervention. Thank you for the consult.
[2021-12-22 11:04] LABS: Cortisol Random 4.05 ug/dL
--- NOTE | 2021-12-22 11:11 | PM.PNCARD ---
Progress Note: A&P Assessment and Plan (1) ST elevation (STEMI) myocardial infarction: Code(s): I21.3 - ST elevation (STEMI) myocardial infarction of unspecified site Status: Acute Plan 46-year-old man previously which apparently healthy now found to have multivessel coronary disease status post emergent PCI to the right coronary artery on Wednesday night. Also found to have diabetes during this admission. Patient's is skeptical of that diagnosis. Would recommend keeping him in the hospital at least until tomorrow prior to discharge. David Hare MD [facility] Subjective Date/time seen: Date of service:12/22/21 11:11 Interval history: Follow-up visit in this 46-year-old man with: Coronary artery disease initial presentation with acute coronary syndrome, inferior ST-elevation. Brought to the manager cardiac cath and found to have multivessel disease but none of the left coronary disease was flow-limiting so PCI with drug-eluting stent to the right coronary artery was carried out successfully. He is asymptomatic this morning and feels well. Patient's had a multitude of questions regarding his diagnosis, restrictions following discharge and so on. These were discussed to her satisfaction. Exam Const: General: comfortable and no acute distress Other: Pleasant white male appearing his stated age no distress HENMT: Mouth: Yes moist mucous membranes Eyes: Sclera: sclerae normal Pupils: Equal, round and reactive pupils present Neck: Neck: supple and no JVD Other: carotid impulses are unremarkable no bruits Resp: Effort & Inspection: normal respiratory effort Auscultation: clear to auscultation bilaterally Cardio: Rate: regular rate Rhythm: regular rhythm GI: GI Palp: Yes Soft to palpation Auscultation: normal bowel sounds Skin: General skin exam: normal color Neuro: Other: past normal cognition Extrem: General: normal to inspection Other: puncture site looks fine no hematoma Objective Data Vital Signs Vital Signs: Vital Signs - 24 hr 12/21/21 12:00 12/21/21 12:00 12/21/21 12:01 Temperature 35.9 C L Pulse Rate 82 84 Respiratory Rate 13 12 Blood Pressure 128/76 Pulse Oximetry 99 97 Oxygen Delivery Room Air 12/21/21 12:00 12/21/21 14:00 12/21/21 13:01 Temperature Pulse Rate 86 81 83 Respiratory Rate 14 Blood Pressure 121/71 Pulse Oximetry 96 Oxygen Delivery 12/21/21 14:01 12/21/21 16:00 12/21/21 15:01 Temperature Pulse Rate 75 79 Respiratory Rate 12 12 Blood Pressure 120/75 116/95 H Pulse Oximetry 96 99 Oxygen Delivery Room Air 12/21/21 16:01 12/21/21 16:00 12/21/21 18:00 Temperature Pulse Rate 80 85 89 Respiratory Rate 13 Blood Pressure 119/75 Pulse Oximetry 99 Oxygen Delivery 12/21/21 17:00 12/21/21 17:01 12/21/21 18:00 Temperature Pulse Rate 77 77 85 Respiratory Rate 15 21 H 16 Blood Pressure 101/70 Pulse Oximetry 97 98 Oxygen Delivery 12/21/21 18:01 12/21/21 19:43 12/21/21 20:03 Temperature Pulse Rate 92 83 86 Respiratory Rate 14 14 Blood Pressure 106/67 Pulse Oximetry 100 98 Oxygen Delivery Room Air 12/21/21 20:00 12/21/21 20:00 12/21/21 22:00 Temperature 36.7 C Pulse Rate 84 88 77 Respiratory Rate 14 Blood Pressure 119/74 Pulse Oximetry 99 Oxygen Delivery 12/21/21 22:00 12/21/21 23:12 12/21/21 23:00 Temperature Pulse Rate 77 78 75 Respiratory Rate 15 16 Blood Pressure 113/75 Pulse Oximetry 97 98 Oxygen Delivery Room Air 12/22/21 00:00 12/22/21 00:00 12/22/21 02:00 Temperature 36.9 C Pulse Rate 74 72 71 Respiratory Rate 15 Blood Pressure 108/75 Pulse Oximetry 97 Oxygen Delivery 12/22/21 02:00 12/22/21 03:03 12/22/21 04:00 Temperature 36.8 C Pulse Rate 70 75 72 Respiratory Rate 14 13 13 Blood Pressure 121/80 116/72 Pulse Oximetry 97 96 96 Oxygen Delivery Room Air 12/22/21 04:00 12/22/21 0
[2021-12-22] MEDS: EMPAGLIFLOZIN 10 MG TABLET PO (11:17)
[2021-12-22 11:22] LABS: Glucose Point of Care 190 mg/dl (65-105)
[2021-12-22 16:55] LABS: Glucose Point of Care 119 mg/dl (65-105)
--- NOTE | 2021-12-22 17:00 | PC.NURSE ---
This patient, David Magdaleno, was transferred to [facility] on 12/22/21 at 1720. Personal belongings sent with patient. Report given to [place]. Appropriate documentation sent with patient.
[2021-12-22 21:08] LABS: Glucose Point of Care 106 mg/dl (65-105)
[2021-12-23] VITALS: PULSE 70
[2021-12-23 04:00] VITALS: BP 123/75; PULSE 72; PULSE 83; RESP 17; TEMP 37.2; O2SAT 97
[2021-12-23 06:44] LABS: Hematocrit 43.4 % (42.0-52.0); Hemoglobin 14.4 g/dL (14.0-18.0); Mean Corpuscular HGB Conc 33.2 g/dl (32-36); Mean Corpuscular Hemoglobin 30.4 pg (26-34); Mean Corpuscular Volume 91.8 fl (80-100); Mean Platelet Volume 9.7 fl (7.4-10.4); Platelet Count Result 227 k/mm3 (150-375); Red Blood Count 4.73 M/mm3 (4.6-6.20); Red Cell Distribution Width 13.7 % (11.5-14.5); White Blood Count 7.7 K/mm3 (4.5-10.0)
[2021-12-23 07:03] LABS: Alanine Aminotransferase 19 U/L (6-50); Albumin Level 4.3 g/dL (3.5-5.1); Alkaline Phosphatase 60 U/L (38-126); Anion Gap 11 mmol/L (8-16); Aspartate Amino Transferase 19 U/L (17-59); Bilirubin,Total 0.8 mg/dL (0.2-1.3); Blood Urea Nitrogen 12 mg/dL (9-20); Calcium 8.8 mg/dL (8.4-10.2); Carbon Dioxide 27 mmol/L (22-30); Chloride 99 mmol/L (98-107); Estimated CRCL calculation 164 ml/min; Estimated Glomerular Filt Rate > 60; Glucose 121 mg/dL (65-110); Magnesium 1.7 mg/dL (1.6-2.3); Phosphorus 4.2 mg/dL (2.5-4.5); Potassium 3.4 mmol/L (3.4-5.0); Sodium 137 mmol/L (137-145); Triglycerides 513 mg/dL (<150)
[2021-12-23 07:54] LABS: Glucose Point of Care 121 mg/dl (65-105)
[2021-12-23 08:00] VITALS: BP 114/64; PULSE 84; PULSE 87; RESP 17; TEMP 36.3; O2SAT 96
[2021-12-23] MEDS: TICAGRELOR 90 MG TABLET PO (08:14)
[2021-12-23] MEDS: OMEGA 3 POLYUNSAT FATTY ACIDS 1 GM CAP PO (08:14)
[2021-12-23] MEDS: EMPAGLIFLOZIN 10 MG TABLET PO (08:14)
[2021-12-23] MEDS: lisinopriL 5 MG TABLET PO (08:14)
[2021-12-23] MEDS: ASPIRIN 81 MG ENTERIC TABLET PO (08:14)
[2021-12-23] MEDS: carvediloL 3.125 MG TABLET PO (08:15)
[2021-12-23] MEDS: ATORVASTATIN 40 MG TABLET PO (08:15)
[2021-12-23] MEDS: ENOXAPARIN 40 MG/0.4 ML SYRINGE SUB-Q (08:15)
[2021-12-23] MEDS: metFORMIN HCL 500 MG TABLET PO ×2 (08:15→17:03)
--- NOTE | 2021-12-23 08:38 | PM.PNCARD ---
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 He is stable, labs and vitals WNL. Feeling well this morning and is asymptomatic at this time. Continue DAPT with ASA, brilinta for one year without interruption Continue SAM Continue Coreg Continue statin Aggressive risk factor modification for CAD Discussed the importance of immediate and ongoing smoking cessation with him Outpatient follow up in 2-3 weeks Cardiac rehab OK for discharge today from a cardiac standpoint. Subjective Date/time seen: 12/23/21 08:38 Interval history: Follow-up visit in this 46-year-old man with: Coronary artery disease initial presentation with acute coronary syndrome, inferior ST-elevation. Brought to the boat laborer and found to have multivessel disease but none of the left coronary disease was flow-limiting so PCI with drug-eluting stent to the right coronary artery was carried out successfully. Date of service 12/23/2021: Feeling well this morning, asymptomatic. Denies chest pain, shortness of breath, palpitations. Review of Systems Constitutional: Constitutional: Denies chills, Denies fever(s) and Denies poor appetite Eyes: Eyes: Denies eye discharge, Denies loss of vision, Denies eye pain and Denies photophobia ENT: Denies dizziness, Denies epistaxis, Denies nasal congestion and Denies sore throat Cardiovascular: Cardiovascular: Denies chest pain, Denies syncope, Denies pedal edema, Denies leg edema, Denies lightheadedness, Denies palpitations, Denies dyspnea, Denies dyspnea on exertion and Denies orthopnea Respiratory: Respiratory: Denies chest congestion, Denies cough, Denies dyspnea, Denies dyspnea on exertion and Denies wheezing Gastrointestinal: Gastrointestinal: Denies abdominal pain, Denies hematochezia, Denies diarrhea, Denies nausea and Denies vomiting Genitourinary: Genitourinary: Denies hematuria, Denies genital lesions and Denies dysuria Musculoskeletal: Musculoskeletal: Reports no additional musculoskeletal complaints, Denies arthralgias, Denies joint swelling and Denies numbness Integumentary/Breasts: Skin/Breast: Reports system reviewed and no additional complaints, except as docu, Denies pruritus and Denies rash Neurologic: Reports system reviewed and no additional complaints, except as documented, Denies behavioral changes, Denies confusion, Denies dizziness, Denies syncope, Denies loss of vision and Denies numbness Psychiatric: Psychiatric: Denies anxiety, Denies behavioral changes, Denies confusion and Denies depression Endocrine: Endocrine: Denies cold intolerance, Denies heat intolerance and Denies palpitations Hematologic/Lymphatic: Hematologic/Lymphatic: Denies easy bleeding and Denies easy bruising Allergic/Immunologic: Allergic/Immunologic: Denies urticaria and Denies wheezing Exam Const: General: cooperative, healthy appearing, comfortable, no acute distress, alert and awake; No confusion Nutritional Appearance: well nourished Orientation/consciousness: oriented to person, patient oriented x3 and No confusion Other: Pleasant white male appearing his stated age no distress HENMT: Head: normal to inspection, normocephalic and atraumatic Ears: hearing grossly normal bilaterally General nose exam: Normal external nose present, Normal nares present and no nasal discharge noted Face and sinus: normal facial exam and no erythema Mouth: Yes moist mucous membranes, No drooling and No restricted motion Throat: uvula midline Eyes: General: appearance normal, both eyes and all related structures Alignment and Position: position normal Conjunctivae: conjunctivae normal Sclera: sclerae normal Pupils: Equal, round and reactive pupils present Direct Ophthalmo
[2021-12-23] MEDS: INSULIN GLARGINE (*BKC) 100 UNITS/ML 20 UNITS SUB-Q (09:29)
[2021-12-23 11:48] LABS: Glucose Point of Care 108 mg/dl (65-105)
[2021-12-23 12:00] VITALS: BP 116/60; PULSE 85; PULSE 86; RESP 17; TEMP 36.3; O2SAT 97
[2021-12-23 14:00] VITALS: BP 110/60; PULSE 88; RESP 17; TEMP 36.3; O2SAT 98
[2021-12-23 16:00] VITALS: PULSE 78
[2021-12-23 16:14] LABS: Glucose Point of Care 104 mg/dl (65-105)
--- NOTE | 2021-12-23 17:03 | PM.IMPN ---
Progress Note: A&P Assessment and Plan (1) ST elevation (STEMI) myocardial infarction: Code(s): I21.3 - ST elevation (STEMI) myocardial infarction of unspecified site Status: Acute Assessment and Plan: Patient presents with left shoulder and chest pain and found to have ST-elevation SD. Patient underwent balloon angioplasty and drug-eluting stent placement successfully. He tolerated the procedure well. It should be noted that he had diffuse irregular disease in the LAD and there was discussion about possible CABG but the IFR was borderline at worst. Repeat EKG showing resolution of the ST elevation. Stable. Continue aspirin, Brilinta, Coreg, lisinopril and Lipitor. Continue aggressive medical management. (2) Hypokalemia: Code(s): E87.6 - Hypokalemia Status: Acute Assessment and Plan: Potassium was low on admission and has been replaced. Primary hyperaldosteronism being considered. (3) CAD (coronary artery disease): Code(s): I25.10 - Atherosclerotic heart disease of [place] coronary artery without angina pectoris Status: Acute Assessment and Plan: As above. Continue aggressive medical management and control of his risk factors. Smoking cessation has been emphasized. He was also educated about the need for good dental hygiene and about the benefits of leading a healthy lifestyle. (4) Diabetes mellitus: Code(s): E11.9 - Type 2 diabetes mellitus without complications Status: Acute Assessment and Plan: Patient has been having polyuria recently and noted to have hyperglycemia on admission. A1c 9.7. He was treated with insulin drip for his hypertrigylcerides. Elevated TG felt related to his uncontrolled DM. Metformin was added. early childhood educator aide and dietitian consulted. Suspect patient was dehydrated on presentation with elevated calcium, protein and albumin. Calcium has normalized with hydration. Empagliflozin was added. He was continued on Lantus but his glucose has dropped into the low 100's. [place] we could stop the Lantus with further medication titration as outpatient. He will check his glucose 2-3x/day, record and bring into his doctor for review. (5) Hypertriglyceridemia: Code(s): E78.1 - Pure hyperglyceridemia Status: Acute Assessment and Plan: His triglycerides are elevated probably related to his uncontrolled diabetes. Lipase was normal and no abdominal pain with benign exam. TG level improving with improvement in glucose. Lipitor and Fish oil added. Follow (6) Tobacco abuse: Code(s): Z72.0 - Tobacco use Status: Acute Assessment and Plan: Patient was educated extensively about the benefits of smoking cessation. He voices understanding. Plan Code status: Full DVT prophylaxis: Lovenox Diet: Low fat; diabetic Subjective Date/time seen: 12/23/21 17:03 Interval history: 46yo healthy male presents with chest pain and found to have STEMI. No issues overnight. Feels well. No CP. Exam Narrative: AF 97.4 110/60 78 17 98% ra Gen - NARD Chest - lungs are clear anteriorly. Nml RR CV - RRR. S1-S2. Tele showing no significant dysrhythmias Abd - soft, NT/ND, +BS Ext - no pedal edema. Psych - normal mood and affect Skin - warm and dry. Objective Data Vital Signs Vital Signs: Vital Signs - 24 hr 12/22/21 20:43 12/22/21 20:00 12/22/21 20:00 Temperature 99.7 F H Pulse Rate 72 82 83 Respiratory Rate 18 Blood Pressure 110/75 Pulse Oximetry 95 Oxygen Delivery 12/23/21 00:00 12/22/21 20:00 12/23/21 04:00 Temperature Pulse Rate 70 70 72 Respiratory Rate 18 Blood Pressure Pulse Oximetry 95 Oxygen Delivery Room Air 12/23/21 04:00 12/23/21 08:00 12/23/21 08:00 Temperature 99.0 F 97.4 F L Pulse Rate 83 84 87 Respiratory Rate 17 17 Blood Pressure 123/75 114/64 Pulse Oximetry 97 96 Oxygen Delivery 12/23/21 12:00 12/23/21 1
--- NOTE | 2021-12-24 13:43 | PC.NURSE ---
Initial DSMT and MNT [facility].
[2021-12-29 14:41] LABS: PRA 1.69 ng/mL/h (0.25-5.82)
--- NOTE | 2021-12-30 08:22 | PC.NURSE ---
Aldosterone -1. ERA-1.69 Dr. Ramirez aware
--- NOTE | 2022-01-16 13:37 | PM.DS ---
DS: Admitting Diagnosis Discharge Date 12/23/21 Admitting Diagnosis STEMI DS: Discharge Diagnosis Discharge Diagnosis (1) ST elevation (STEMI) myocardial infarction: Code(s): I21.3 - ST elevation (STEMI) myocardial infarction of unspecified site Status: Acute Assessment and Plan: New diagnosis of multivessel CAD s/p emergent PCI to the RCA on 12/20/21. He is stable, labs and vitals WNL. Feeling well this morning and is asymptomatic at this time. Continue DAPT with ASA, brilinta for one year without interruption Continue SAM Continue Coreg Continue statin Aggressive risk factor modification for CAD Discussed the importance of immediate and ongoing smoking cessation with him Outpatient follow up in 2-3 weeks Cardiac rehab OK for discharge today from a cardiac standpoint. DS: Summary Hospital Course Hospital Course: 46-year-old patient with past medical history of tobacco use who presents to the hospital with intermittent left shoulder and left arm pain for the last 3-4 days without aggravating or relieving factors.? Denies shortness of breath, palpitations, dizziness, syncope, orthopnea or paroxysmal nocturnal dyspnea.? He was taken to the animal laboratory helper for coronary angiogram and was found to have a borderline lesion proximal and mid LAD by IFR measurement, nonobstructive plaque in the mid ramus and distal left circumflex artery by IFR measurement. He underwent successful stenting of mid RCA using 3.5 x 34 mm drug eluting stent. No periprocedural complications. He recovered as expected. Was also found to have diabetes during this hospital stay which was managed by the hospitalist service. Time Spent with Patient Time attestation: Total time spent providing and/or coordinating discharge services: 51 minutes Exam Const: General: cooperative, healthy appearing, comfortable, no acute distress, alert and awake; No confusion Nutritional Appearance: well nourished Orientation/consciousness: oriented to person, patient oriented x3 and No confusion Other: Pleasant white male appearing his stated age no distress HENMT: Head: normal to inspection, normocephalic and atraumatic Ears: hearing grossly normal bilaterally General nose exam: Normal external nose present, Normal nares present and no nasal discharge noted Face and sinus: normal facial exam and no erythema Mouth: Yes moist mucous membranes, No drooling and No restricted motion Throat: uvula midline Eyes: General: appearance normal, both eyes and all related structures Alignment and Position: position normal Conjunctivae: conjunctivae normal Sclera: sclerae normal Pupils: Equal, round and reactive pupils present Direct Ophthalmoscopy: No photophobia Neck: Neck: normal visual inspection, supple and no JVD Thyroid: thyroid normal Carotids: no bruits Lymphatic: lymphedema not noted Other: carotid impulses are unremarkable no bruits Chest: Chest palpation & inspection: normal inspection of the chest and no tenderness Resp: Effort & Inspection: normal respiratory effort and no nasal flaring Auscultation: clear to auscultation bilaterally, no crackles, no rales and no wheezes Cardio: Jugular venous distension: no JVD Rate: regular rate Rhythm: regular rhythm Heart sounds: S1 normal heart sound present, S2 normal heart sound present, no gallops, no murmurs and no rubs Other: Pedal pulses intact GI: Inspection: normal to inspection and non-distended Auscultation: normal bowel sounds Rectal Exam: deferred : General: No no CVA tenderness Back/Spine/Pelvis: Back: No no CVA tenderness Cervical Spine: cervical ROM normal Skin: General skin exam: normal color and rashes and/or lesions noted Other: R groin arterial access site free from bleeding, hematoma, bruit. Neuro: General: oriented to person, patient oriented x3 and No confusion Cranial nerves: No CN's II-XII intact bilaterally and Yes Equal, round and reactive pupils present Speec
== END 2021-12-23 18:30 | disposition home or self-care (01) | DRG 247 ==
LOC: ANHED 20:16 → ANHCATHLAB 21:08 → ANHICU 23:23 → ANH3MEDSUR 12-23 09:37 → ANHCATHLAB 12-25 09:28 → ANHED 12-25 09:28 → ANHICU 12-25 09:28 → ANHCATHLAB 12-25 09:28 → ANH3MEDSUR 12-25 09:29 → ANHICU 12-25 09:29
PROVIDERS: Internal Medicine; Admitting Provider Internal Medicine Cardiovascular Disease; Emergency Provider Nurse Practitioner Family; Visit Provider Nurse Practitioner
PROC: 4A023N7 Measurement of Cardiac Sampling and Pressure, Left Heart, Percutaneous Approach (ICD-10-PCS; CPT 93452; principal; 2021-12-20 21:00)
PROC: 4A033BC Measurement of Arterial Pressure, Coronary, Percutaneous Approach (ICD-10-PCS; CPT 93571; 2021-12-20 21:00)
PROC: 4A033BC Measurement of Arterial Pressure, Coronary, Percutaneous Approach (ICD-10-PCS; CPT 75580; 2021-12-20 21:00)
PROC: 027034Z Dilation of Coronary Artery, One Artery with Drug-eluting Intraluminal Device, Percutaneous Approach (ICD-10-PCS; 2021-12-20 21:00)
PROC: 027034Z Dilation of Coronary Artery, One Artery with Drug-eluting Intraluminal Device, Percutaneous Approach (ICD-10-PCS; 2021-12-20 21:00)
PROC: 027034Z Dilation of Coronary Artery, One Artery with Drug-eluting Intraluminal Device, Percutaneous Approach (ICD-10-PCS; 2021-12-20 21:00)
PROC: 027034Z Dilation of Coronary Artery, One Artery with Drug-eluting Intraluminal Device, Percutaneous Approach (ICD-10-PCS; 2021-12-20 21:00)
DX: I21.11 ST elevation (STEMI) myocardial infarction involving right coronary artery (principal); I25.10 Atherosclerotic heart disease of native coronary artery without angina pectoris; E87.6 Hypokalemia; E11.9 Type 2 diabetes mellitus without complications; E78.1 Pure hyperglyceridemia; F17.210 Nicotine dependence, cigarettes, uncomplicated
CPT/HCPCS: 36415; 71046; 80048; 80053; 80061; 82088; 82533; 82948; 83036; 83690; 83735; 84100; 84244; 84478; 84484; 85025; 85027; 85610; 85730; 92978; 93005; 93306; 93458; 93571; 93572; 99291; A9270; C1725; C1753; C1760; C1769; C1874; C1887; C1894; C9606; G0269; J1642; J1644; J1650; J1815; J2250; J3010; J3480; J7030; J7040

== ENCOUNTER 2022-04-30 08:30 | Outpatient (RCR) | payer BC, SELFPAY ==
[2022-02-03 08:47] VITALS: PULSE 83
== END 2022-04-30 13:48 | disposition home or self-care (01) ==
LOC: ANHCPREHAB 08:30
PROVIDERS: PCP Family Medicine; Visit Provider Nurse Practitioner
DX: Z95.2 Presence of prosthetic heart valve (principal)
CPT/HCPCS: 93798